=== PATIENT | male | born 1965 | race Two or more races ===

== ENCOUNTER 2024-02-03 15:45 | Emergency (ER) | payer BC, SELFPAY ==
--- NOTE | ~2024-02-03 | XR_ITS ---
EXAMINATION: XR KNEE, LEFT CLINICAL INFORMATION: Pain COMPARISON: None available. TECHNIQUE: AP, lateral, and both oblique views of the left knee. FINDINGS: There is marked patellofemoral compartment joint space narrowing and marginal osteophytes and articular cortical remodeling. More moderate medial and mild lateral compartment osteoarthritis. Slight varus angulation at the knee joint. Chronic osseous fragment at the medial margin of the medial tibial plateau. Small joint effusion. Mild soft tissue swelling. Subtle trabecular sclerosis in the distal femoral metaphysis and proximal tibial metaphysis may correspond to chronic intramedullary infarcts. XR/XR knee LT 3V IMPRESSION: 1. Tricompartmental osteoarthritis in the left knee, most severe in the patellofemoral compartment. 2. Small joint effusion.
[2024-02-03 15:48] VITALS: BP 144/100; PULSE 65; RESP 18; TEMP 37.1; O2SAT 98; BMI 23.2
--- NOTE | 2024-02-03 15:48 | ED_ITS ---
HPI - Extremity Injury (Lower) General Chief Complaint: Extremity Injury, Lower Stated Complaint: L knee pain Time Seen by Provider: 02/03/24 17:30 Source: patient and RN notes reviewed Mode of arrival: ambulatory Limitations: no limitations History of Present Illness ED Provider: Kristen Araujo PA-C HPI Narrative: This is a 58-year-old male, with no known medical problems, who presents [facility] with complaints of left knee pain x2 days. Patient states that 3 days ago he was getting out of his bed, and the 1st step he took he felt his left knee give out. He states that he has had pain and swelling to his left knee. He has been using a knee brace for his symptoms which has provided him with little relief. He denies any history of problems with his knee in the past. He denies any fevers or chills. He states he has a history of right knee problems, states that he had arthroscopic surgery while he was incarcerated in 2017. Pain worsens with weight-bearing and with flexion and extension of the knee. No other complaints or concerns at this time. MD complaint: knee injury Onset (ago): day(s) Place: home Severity: moderate Relieving factors: nothing Exacerbating factors: weight bearing Context: walking Associated symptoms: able to partially bear weight Other symptoms: none Related Data Previous Rx's ?Medication ?Instructions ?Recorded acetaminophen 650 mg 650 mg PO Q8H PRN pain #30 tabs 02/03/24 tablet,extended release (Tylenol Arthritis Pain) ibuprofen 600 mg tablet 600 mg PO Q6H PRN pain #30 tabs 02/03/24 Allergies Allergy/AdvReac Type Severity Reaction Status Date / Time No Known Allergies Allergy Verified 02/03/24 15:50 Review of Systems Review of Systems: Yes all other systems are reviewed and are negative Constitutional: Constitutional: Reports as per [facility] Past Medical History Attestation statement: The following information was validated with the patient. Social History Social History Advance Directives: No Advance Directives Information Provided: No Do you have a plan to hurt others: No Plan Physical Exam Vital Signs: Vital Signs: Last Vital Signs Temp 98.7 F 02/03/24 15:48 Pulse 65 02/03/24 15:48 Resp 18 02/03/24 15:48 BP 144/100 H 02/03/24 15:48 Pulse Ox 98 02/03/24 15:48 O2 Del Method Room Air 02/03/24 15:48 BMI result Body Mass Index 23.2 Const: General: cooperative, comfortable and no acute distress Orientation/consciousness: patient oriented x3 Limitations: no limitations HEENT: Head: Yes normal to inspection, Yes normocephalic and Yes atraumatic Ears: hearing grossly normal bilaterally General nose exam: Normal external nose present Face and sinus: Yes normal facial exam Mouth: Normal oral and palatal mucosa present, oropharynx normal and moist mucous membranes Throat: Yes posterior oropharynx normal Eyes: General: appearance normal, both eyes and all related structures Eyelids: Yes eyelids normal Conjunctivae: conjunctivae normal Sclerae: sclerae normal Pupils: Equal, round and reactive pupils present EOM: EOMs intact bilaterally Neck: Neck: Yes normal visual inspection, Yes full ROM and Yes no lymphadenopathy Lymphatic: no lymphadenopathy noted Chest: Chest palpation & inspection: normal inspection of the chest Resp: Effort & Inspection: normal respiratory effort and able to speak in co mplete sentences Auscultation: clear to auscultation bilaterally, no crackles, no rales, no rhonchi and no wheezes Cardio: Rate: regular rate Rhythm: regular rhythm Heart sounds: S1 normal heart sound present and S2 normal heart sound present GI: Inspection: Yes normal to inspection Skin: General skin exam: no rashes or lesions noted Trauma: no lacerations or abrasions Wounds: no wounds Neuro: General: patient oriented x3 and moves all extremities Cranial nerves: Yes Equal, round and reactive pupils present Extrem: Other: Left knee with no obvious bony deformity or swelling. He does have tenderness palpation along the medial and lateral joint line. Able to flex and extend however pain elicited with extension. No calf tenderness. No overlying skin changes, warmth or erythema. Negative anterior-posterior drawer. He has pain with varus and valgus strain. General: Yes normal to inspection Right upper extremity: normal to inspection Left upper extremity: normal to inspection Right lower extremity: normal to inspection Left lower extremity: normal to inspection Course Course Course Narrative: This is a Rapid Medical Exam performed in triage by Anay Hernandez PA-C. Full HPI, ROS and PE to be performed by primary ED provider. 58 year-old M w/ PMHx presenting to the ED c/o L knee pain x3 days s/p knee giving out on Friday morning after waking. denies direct injury/fall PE: +limping gait, left knee with swelling and +ttp. no erythema or warmth. NV intact Plan: XR Medical Decision Making Medical Decision Making MDM Narrative: This is a 58-year-old male who presents emergency department with complaints of left knee pain x2 days. He states that his left knee gave out on him after getting out of bed. He states that he is able to partially bear weight on his knee. On arrival, vital signs within normal limits. He has tenderness palpation along the medial and lateral joint line. Negative anterior-posterior drawer test, pain with varus and valgus strain. Differential diagnoses include internal ligamentous derangement of the left knee, sprain, strain, contusion, fracture. He has no calf tenderness to suggest DVT. He has no overlying skin changes, and he has full range of motion of the knee, therefore septic arthritis is less likely. 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 Advised to call orthopedic team tomorrow for follow-up. He was given crutches and an Jovi wrap. Also discharged on ibuprofen and Tylenol. Given return precautions. They understand and agree with plan. Patient stable for discharge. Differential Diagnosis Differential Diagnoses: The differential diagnosis associated with the presentation includes See above Radiology Impression Discussion of test interpretation with radiology: I have reviewed the radiologist's reading. Radiologist Impression: XR/XR knee LT 3V IMPRESSION: 1. Tricompartmental osteoarthritis in the left knee, most severe in the patellofemoral compartment. 2. Small joint effusion. Dictated By: Tahir King MD Discharge Plan Discharge Clinical Impression: Left knee sprain Qualifiers: Encounter type: initial encounter Involved ligament of knee: unspecified ligament Qualified Code(s): S83.92XA - Sprain of unspecified site of left knee, initial encounter Patient Disposition: Home, Self-Care Instructions: Knee Sprain (ED), How to Use an Elastic Bandage (ED) Additional Instructions: You were seen in the emergency department due to left knee pain. Your x-ray shows arthritis as well as swelling, there are no broken bones. We are unable to rule out a ligamentous injury therefore it is very important for you to follow-up with the orthopedic team. Call tomorrow to make an appointment. Please use Jovi wrap, rest, ice, elevate your left knee for comfort. Alternate between ibuprofen and Tylenol as needed for pain. If any new or worsening symptoms occur including but not limited to chest pain, shortness of breath, redness to the knee, increased swelling, please return for re-evaluation. Prescriptions: New ibuprofen 600 mg tablet 600 mg PO Q6H PRN (Reason: pain) Qty: 30 0RF acetaminophen [Tylenol Arthritis Pain] 650 mg tablet extended release 650 mg PO Q8H PRN (Reason: pain) Qty: 30 0RF Referrals: [facility] [Provider Group] Stand Alone Forms: Work/School Release Print Language: Slovenian
[2024-02-03 18:33] VITALS: BP 150/85; PULSE 47; RESP 16; TEMP 36.2; O2SAT 100
[2024-02-03 18:36] VITALS: PULSE 56
[2024-02-03 18:43] VITALS: BP 150/85; PULSE 56; RESP 16; TEMP 36.2; O2SAT 100
== END 2024-02-03 18:46 | disposition home or self-care (01) ==
PROVIDERS: Emergency Provider Emergency Medicine
DX: S83.92XA Sprain of unspecified site of left knee, initial encounter (principal); X50.1XXA Overexertion from prolonged static or awkward postures, initial encounter; M25.462 Effusion, left knee; M17.12 Unilateral primary osteoarthritis, left knee; Y93.89 Activity, other specified; Y92.003 Bedroom of unspecified non-institutional (private) residence as the place of occurrence of the external cause; Y99.9 Unspecified external cause status
CPT/HCPCS: 73562; 99283

== ENCOUNTER 2024-02-19 12:35 | Outpatient (AMB) | payer BC, SELFPAY ==
--- NOTE | 2024-02-19 12:47 | MHC.OFFVIS ---
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 Patient has history of left knee arthroscopy while her was incarcerated in 2017. He was getting out of bed on 01/31/24 when he felt the knee give out on him. He was seen at [facility] . He wears a brace for his symptoms. Takes tylenol and Ibuprofen with mild relief. 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 He was incarcerated for over 2 decades. He has had injections and surgery on the right side. That was not helpful. He now has left knee pain for years. There are times that he has severe pain that prevents him from walking. FORMERLY [facility], [facility] Surgical History (Updated 02/19/24 @ 12:54 by Fatou Arechiga [facility]) History of left knee surgery (~2017) Physical Exam Vital Signs: BMI result Body Mass Index 24.0 Extrem Other: 5-120 deg motion with ttp medial compartment Varus OA mild effusion Office Procedures Joint Injection/Aspiration Joint Injection/Aspiration Details: Injected 1 mL of Decadron and 3 mL 1% lidocaine and 3 mL of 0.25% Marcaine. Site was prepped using aseptic technique. Patient tolerated the procedure well. Primary Site: left knee Approach Used: anterolateral Coding 25838 - Large joint Procedure code (CPT) selection complete Results Reviewed Results Reviewed: I personally reviewed relevant radiographs. Severe left knee OA. Assessment & Plan Assessment & Plan (1) Localized osteoarthritis of left knee: Code(s): M17.12 - Unilateral primary osteoarthritis, left knee Category: Medical Plan: Discussed options including surgery but, at this time, injected knee. F/u 3 months. Coding Level of Care Code New Pt Level 3 (56282) Diagnoses Localized osteoarthritis of left knee M17.12 CPT Codes Coding - 99278 Large joint: 76356 - Large joint ([id number])
[2024-02-19 12:54] VITALS: BMI 24.0
== END 2024-02-19 13:54 | disposition home or self-care (01) ==
PROVIDERS: Visit Provider Orthopaedic Surgery
DX: M17.12 Unilateral primary osteoarthritis, left knee (principal)
CPT/HCPCS: 20610; 99203

== ENCOUNTER → 2024-02-19 12:35 | Outpatient (BNVA) | payer BC, SELFPAY | PROVIDERS: Visit Provider Orthopaedic Surgery | DX: M17.12 Unilateral primary osteoarthritis, left knee (principal) | CPT/HCPCS: 20610; J0665; J1100 ==

== ENCOUNTER 2025-05-04 13:39 | Emergency (ER) | payer BC, SELFPAY ==
--- NOTE | ~2025-05-04 | XR_ITS ---
EXAMINATION: XR KNEE, LEFT CLINICAL INFORMATION: pain since 2014, swelling COMPARISON: February 03, 2024 TECHNIQUE: Four views of the left knee. FINDINGS: There is a joint effusion, increased from the prior. There is moderate narrowing of the medial joint space, similar to the prior. There is mild medial subluxation of distal femur. There is ossification in the soft tissues medial to the medial joint line. No other abnormalities are noted. XR/XR knee LT 4V IMPRESSION: Moderate osteoarthritis with a joint effusion. Electronically signed by: Gigi Mathew MD 05/04/2025 02:04 PM EDT
[2025-05-04 13:43] VITALS: BP 155/86; PULSE 75; RESP 15; TEMP 36.6; O2SAT 97; BMI 24.8
--- NOTE | 2025-05-04 13:49 | ED.GENADULT ---
HPI - General Adult General Chief complaint: Extremity Injury, Lower Stated complaint: left knee pain/swelling Time Seen by Provider: 05/04/25 16:51 Source: patient Mode of arrival: ambulatory Limitations: no limitations History of Present Illness ED Provider: ELLEN HALL PA-C HPI narrative: 59-year-old male with past medical history significant for osteoarthritis presents to the ED today for evaluation of left knee pain/swelling x3 days. Pain is exacerbated with movement. Denies any injury or trauma to the knee. He has been trialing [id number] Motrin without much improvement. Denies history of gout or IV drug use. Related Data Home Medications ?Medication ?Instructions ?Recorded ?Confirmed famotidine 20 mg tablet 20 mg PO BID indigestion 02/19/24 hydrochlorothiazide 12.5 mg tablet 12.5 mg PO DAILY 02/19/24 Previous Rx's ?Medication ?Instructions ?Recorded acetaminophen 650 mg 650 mg PO Q8H PRN pain #30 tabs 02/03/24 tablet,extended release (Tylenol Arthritis Pain) ibuprofen 600 mg tablet 600 mg PO Q6H PRN pain #30 tabs 02/03/24 diclofenac sodium 1 % topical gel 4 g topical QID #100 grams 05/04/25 meloxicam 7.5 mg tablet 7.5 mg PO DAILY PRN pain (scale 05/04/25 score 4-6) #30 tabs Allergies Allergy/AdvReac Type Severity Reaction Status Date / Time No Known Allergies Allergy Verified 05/04/25 13:46 Review of Systems Review of Systems: Yes all other systems are reviewed and are negative PMFSH Past Medical History Attestation statement: The following information was validated with the patient. Source: old records reviewed and nursing notes reviewed Surgical History History of left knee surgery (~2017) Social History Social History Advance Directives: No Advance Directives Information Provided: Yes Do you have a plan to hurt others: No Plan Physical Exam ED Vital Signs: Vital Signs - 24 hr 05/04/25 13:43 05/04/25 17:32 Temperature 98 F 98 F Pulse Rate 75 75 Respiratory Rate 15 15 Blood Pressure 155/86 H 155/86 H Pulse Oximetry 97 97 Oxygen Delivery Method Room Air Room Air BMI result Body Mass Index 24.8 hypertensive, vitals are otherwise wnl General: Well appearing, in no acute distress. Skin: Warm, dry, intact. No rashes or lesions. Head: Normocephalic, atraumatic. EENT: Hearing is intact b/l. Conjunctiva clear. PERRLA. EOM intact. Moist mucous membranes.? Neck: Supple without LAD Back: No midline spinous or paraspinal tenderness. No step off deformity. Ext: +mild swelling noted to left knee. No deformity, redness. Full ROM intact to left knee with pain on flexion. No palpable deformity, crepitus, warmth. NV intact. no calf tenderness. Neuro: AOx3. Normal speech. Ambulating with limping gait. Course Course Course Narrative: cbc without leukocytosis or left shift. no anemia, h&h stable. Chemistry without acute electrolyte abnormality requiring intervention. No ELADIO. Uric acid WNL. X-ray left knee showing joint effusion with moderate narrowing of the medial joint space - findings consistent with osteoarthritis. > discussed workup results with patient. Jovi wrap applied. Will treat for osteoarthritis. Toradol injection given in the ED today. Will send patient home with a prescription for meloxicam and diclofenac cream. Advised follow up with PCP. Patient has remained stable throughout ED visit today. Discussed worrisome signs and symptoms and when to return to the ED. All questions answered at this time. Patient is agreeable with disposition and stable for discharge. Medications Administered Discontinued Medications Generic Name Dose Route Start Last Admin Trade Name Freq PRN Reason Stop Dose Admin Ketorolac Tromethamine 30 mg 05/04/25 16:57 05/04/25 17:26 Ketorolac Tromethamine 30 Mg/Ml Vial IM 05/04/25 16:58 30 mg ONCE ONE Administration Procedures Orthopedic Splinting/Casting Injury #1: Side: left Lower Extremity Injury Location: knee Lower Extremity Immobilizer: Jovi wrap Medical Decision Making Medical Decision Making MDM Narrative: 59-year-old male with pmhx significant for osteoarthritis presents to the ED today for evaluation of left knee pain/swelling x3 days. Hypertensive, afebrile. He is well-appearing and in no acute distress. On exam, mild swelling noted to left knee. No deformity, redness. Full ROM intact to left knee with pain on flexion. No palpable deformity, crepitus, warmth. nv intact. no calf tenderness. Differential diagnosis includes osteoarthritis, knee effusion, septic arthritis, gout, pseudogout Unlikely fracture, septic joint, DVT, popliteal cyst, neurovascular compromise, threat to limb Plan for xrays, labs/uric acid, pain control and re-evaluation. Differential Diagnosis Differential Diagnoses: The differential diagnosis associated with the presentation includes As above Admission/Observation Not indicated Lab Data MDM Lab Attestation statement: I reviewed the patient's lab results. As above 05/04/25 13:58 05/04/25 13:58 Labs: Lab Results 05/04/25 Range/Units 13:58 WBC 7.3 (4.8-10.8) X10*3/uL RBC 4.58 L (4.60-5.80) X10*6/uL Hgb 14.3 (14.0-18.0) g/dl Hct 42.9 (42.0-52.0) % MCV 93.7 (80.0-98.0) fL MCH 31.2 (27.0-33.0) pg MCHC 33.3 (31.0-36.0) g/dl RDW 13.1 (11.0-16.0) % Plt Count 235 (160-400) X10*3/uL MPV 9.7 (9.4-12.4) fL Immature Gran % (Auto) 0.6 H (0.0-0.4) % Neut % (Auto) 64.2 (45-73) % Lymph % (Auto) 22.8 (20-40) % [place] % (Auto) 10.3 (2-11) % Eos % (Auto) 1.5 (0-4) % Baso % (Auto) 0.6 (0-2) % Lymph # (Auto) 1.7 (1.2-4.9) X10*3/uL [place] # (Auto) 0.8 (0.1-1.2) X10*3/uL Eos # (Auto) 0.1 (0.0-0.4) X10*3/uL Baso # (Auto) 0.0 (0.0-0.2) X10*3/uL Abs Immat Gran (auto) 0.04 H (0.00-0.03) X10*3/uL Absolute Neuts (auto) 4.7 (2.0-8.3) x10*3/uL Absolute Nucleated RBC 0.000 (0.0-0.012) X10*3/uL Nucleated RBC % (auto) 0.0 (0.0-0.2) /100WBC Sodium 143 (135-145) mmol/L Potassium 4.0 (3.3-5.1) mmol/L Chloride 110 H (96-108) mmol/L Carbon Dioxide 28 (22-29) mmol/L Anion Gap 9 L (12-20) BUN 15 (9-16) mg/dL Creatinine 0.74 (0.5-1.4) mg/dL Estim Creat Clear Calc 106.5 Estimated GFR > 60 Random Glucose 97 (60-115) mg/dL Uric Acid 5.1 (3.4-7.0) mg/dL Calcium 9.1 (8.4-10.2) mg/dL Independent Interpretation I performed an independent interpretation of an: Plain X-Ray Interpretation: X-ray left knee without fracture Radiology Impression Discussion of test interpretation with radiology: I have reviewed the radiologist's reading. Radiologist Impression: Procedure(s): XR knee LT 4V Accession Number(s): [id number] cc: Jennifer Olguin MD; Ellen Hall~ Reason for Exam: pain swelling EXAMINATION: XR KNEE, LEFT CLINICAL INFORMATION: pain since 2014, swelling COMPARISON: February 03, 2024 TECHNIQUE: Four views of the left knee. FINDINGS: There is a joint effusion, increased from the prior. There is moderate narrowing of the medial joint space, similar to the prior. There is mild medial subluxation of distal femur. There is ossification in the soft tissues medial to the medial joint line. No other abnormalities are noted. XR/XR knee LT 4V IMPRESSION: Moderate osteoarthritis with a joint effusion. Electronically signed by: Gigi Mathew MD 05/04/2025 02:04 PM EDT Discharge Plan Discharge Clinical Impression: Osteoarthritis of left knee Patient Disposition: Home, Self-Care Instructions: Osteoarthritis (ED) Additional Instructions: You were evaluated in the ED today for your left knee pain. Your blood work is reassuring. Your x-rays show arthritis within your left knee. Treatment for this is supportive care. Utilize rice therapy - rest, ice, compress, elevate the left knee. I am sending meloxicam to your pharmacy. Do not take this with other NSAIDs such as Motrin/ibuprofen as this can increase risk of GI bleeding. I am also sending diclofenac cream to your pharmacy. You may apply this to your left knee for pain. Please follow up with your PCP. Return with any new or worsening symptoms. In the case of an emergency call 911. Prescriptions: New meloxicam 7.5 mg tablet 7.5 mg PO DAILY PRN (Reason: pain (scale score 4-6)) Qty: 30 0RF diclofenac sodium 1 % gel 4 g topical QID Qty: 100 0RF Rx Instructions: apply to single knee, ankle, foot; for foot includes sole/toes/top of foot No Action ibuprofen 600 mg tablet 600 mg PO Q6H PRN (Reason: pain) Qty: 30 0RF acetaminophen [Tylenol Arthritis Pain] 650 mg tablet extended release 650 mg PO Q8H PRN (Reason: pain) Qty: 30 0RF hydrochlorothiazide 12.5 mg tablet 12.5 mg PO DAILY famotidine 20 mg tablet 20 mg PO BID Referrals: Jennifer Olguin MD [Primary Care Provider, Internal Medicine] Stand Alone Forms: Work/School Release Interventions: ED Discharge Assessment Last Done: 05/04/25 17:32 Discharge Date/Time: 05/04/25 17:33 Print Language: Irish
[2025-05-04 14:04] LABS: Hematocrit 42.9 % (42.0-52.0); Hemoglobin 14.3 g/dl (14.0-18.0); Imm Gran Abs Auto 0.04 X10*3/uL (0.00-0.03); Imm Gran Pct Auto 0.6 % (0.0-0.4); Lymphocytes Absolute Auto 1.7 X10*3/uL (1.2-4.9); MANUAL DIFF FLAG NO; Mean Corpuscular HGB Conc 33.3 g/dl (31.0-36.0); Mean Corpuscular Hemoglobin 31.2 pg (27.0-33.0); Mean Corpuscular Volume 93.7 fL (80.0-98.0); NRBC Abs Auto 0.000 X10*3/uL (0.0-0.012); NRBC Pct Auto 0.0 /100WBC (0.0-0.2); Platelet Count 235 X10*3/uL (160-400); Red Blood Count 4.58 X10*6/uL (4.60-5.80); White Blood Count 7.3 X10*3/uL (4.8-10.8)
[2025-05-04 14:20] LABS: Anion Gap 9 (12-20); Blood Urea Nitrogen 15 mg/dL (9-16); Calcium 9.1 mg/dL (8.4-10.2); Carbon Dioxide 28 mmol/L (22-29); Chloride 110 mmol/L (96-108); Creatinine Clr Calc Pharmacy 106.5; Estimated Glomerular Filt Rate > 60; Potassium 4.0 mmol/L (3.3-5.1); Sodium 143 mmol/L (135-145)
[2025-05-04 17:10] LABS: Uric Acid 5.1 mg/dL (3.4-7.0)
[2025-05-04 17:32] VITALS: BP 155/86; PULSE 75; RESP 15; TEMP 36.6; O2SAT 97
--- OUTSIDE RECORDS SUMMARY | 2025-05-04 22:12 | XMS_ITS | Clinical Summary ---
Author Organization [facility] Address [address] [place] [address] Phone Care Team Providers Care Yard Specialist Name Role Phone Jennifer Olguin MD Primary Care Provider + Allergies No known active allergies Medications No known medications Encounters Date Type Department Care Team Description 02/09/2025 4:13 PM EDT - 02/09/2025 7:06 PM EDT Emergency [facility] Emergency [address] [place] [address] Lilly Martinez MD Injury of right lower extremity, initial encounter (Primary Dx) Discharge Disposition: Home or Self Care from Last 3 Months Medical History Medical History Date Comments HTN (hypertension) Social History Tobacco Use Types Packs/Day Years Used Date Smoking Tobacco: Never Assessed Sex and Gender Information Value Date Recorded Sex Assigned at Not on file Legal Sex Male 1:37 PM EDT Gender Identity Not on file Sexual Orientation Not on file Obstetrics History Last Filed Vital Signs Vital Sign Reading Time Taken Comments Blood Pressure 136/97 02/09/2025 3:42 PM EDT Pulse 88 02/09/2025 3:42 PM EDT Temperature 37.1 C (98.8 F) 02/09/2025 3:42 PM EDT Respiratory Rate 16 02/09/2025 3:42 PM EDT Oxygen Saturation 96% 02/09/2025 3:42 PM EDT Inhaled Oxygen Concentration - - Weight 74.8 kg (165 lb) 02/09/2025 3:39 PM EDT Height 177.8 cm (5' 10 ) 02/09/2025 3:39 PM EDT Body Mass Index 23.68 02/09/2025 3:39 PM EDT Plan of Treatment Health Maintenance Due Date Last Done Comments Colorectal Cancer Screening: Colonoscopy 1967 DTaP,Tdap,and Td Vaccines (1 - Tdap) 11/02/1986 Hepatitis B Vaccines (1 of 3 - 19+ 3-dose series) 11/02/1986 Pneumococcal Vaccine: 50+ Ye ars (1 of 1 - PCV) 11/02/2017 Zoster Vaccines (1 of 2) 11/02/2017 Cholesterol Screening (Lipid Panel) 02/04/2024 HIV Screening 02/04/2024 Hepatitis C Screening 02/04/2024 Social Influencers of Health Screening 02/04/2024 Depression Screening 07/14/2024 Hypertension/CHF/CAD Annual BMP Blood Test 02/10/2025 COVID-19 Vaccine (1 - 2023-2 5 season) 2025 Influenza Vaccine (#1) 2025 03/09/2024 RSV Immunization Adult Patie nts (1 - 1-dose 75+ series) 11/02/2042 HIB Vaccines Aged Out No longer eligi ble based on patient's age to complete this topic HPV Vaccines Aged Out No longer eligi ble based on patient's age to complete this topic Hepatitis A Vaccines Aged Out No long er eligible based on patient's age to complete this topic IPV Vaccines Aged Out No longer eligi ble based on patient's age to complete this topic MMR Vaccines Aged Out No longer eligi ble based on patient's age to complete this topic Meningococcal ACWY Vaccine Aged Out N o longer eligible based on patient's age to complete this topic Meningococcal B Vaccine Aged Out No l onger eligible based on patient's age to complete this topic RSV Immunization Patients Un edward 20 months Aged Out No longer eligible b ased on patient's age to complete this topic Varicella Vaccines Aged Out No longer eligible based on patient's age to complete this topic Procedures Procedure Name Priority Date/Time Associated Diagnosis Comments XR ANKLE 3+ VIEWS RIGHT STAT 02/09/2025 4:50 PM EDT XR TIBIA FIBULA 2 VIEWS RIGHT STAT 02/09/2025 4:50 PM EDT from Last 3 Months Results * XR Ankle 3+ Views Right (02/09/2025 4:50 PM EDT) Anatomical Region Laterality Modality Lower Extremities, Ankle Right Radiogr aphic Imaging 02/09/2025 5:04 PM EDT Impressions 02/09/2025 5:05 PM EDT FINDINGS/IMPRESSION: No acute fracture. Normal alignment. Lytic/sclerotic lesion in the distal tibia nonspecific but could represent a nonossifying fibroma. Osteopenia with degenerative changes of the ankle. Large plantar calcaneal spur. -------- FINAL REPORT -------- Dictated By: Russell Schumacher Dictated Date: 02/09/2025 17:04 ET Assigned Physician: Russell Schumacher Reviewed and Electronically Signed By: Russell Schumacher Signed Date: 02/09/2025 17:05 ET Workstation ID: [id number] Transcribed By: Self Edit Transcribed Date: 02/09/2025 17:04 ET Narrative 02/09/2025 5:05 PM EDT XR ANKLE 3+ VIEWS RIGHT INDICATION: trauma TECHNIQUE: XR ANKLE 3+ VIEWS RIGHT COMPARISON: No priors available. Procedure Note Russell Schumacher MD - 02/09/2025 XR ANKLE 3+ VIEWS RIGHT INDICATION: trauma TECHNIQUE: XR ANKLE 3+ VIEWS RIGHT COMPARISON: No priors available. IMPRESSION: FINDINGS/IMPRESSION: No acute fracture. Normal alignment. Lytic/sclerotic lesion in the distal tibia nonspecific but could representa nonossifying fibroma. Osteopenia with degenerative changes of theankle. Large plantar calcaneal spur. -------- FINAL REPORT -------- Dictated By: Russell Schumacher Dictated Date: 02/09/2025 17:04 ET Assigned Physician: Russell Schumacher Reviewed and Electronically Signed By: Russell Schumacher Signed Date: 02/09/2025 17:05 ET Workstation ID: [id number] Transcribed By: Self Edit Transcribed Date: 02/09/2025 17:04 ET Lilly Martinez MD IMG XR PROCEDURES Final Result * XR Tibia Fibula 2 Views Right (02/09/2025 4:50 PM EDT) Anatomical Region Laterality Modality Lower Extremities, Lower Leg Right Rad iographic Imaging 02/09/2025 4:58 PM EDT Impressions 02/09/2025 4:59 PM EDT FINDINGS/IMPRESSION: 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 No acute fracture. Normal alignment. -------- FINAL REPORT -------- Dictated By: Russell Schumacher Dictated Date: 02/09/2025 16:58 ET Assigned Physician: Russell Schumacher Reviewed and Electronically Signed By: Russell Schumacher Signed Date: 02/09/2025 16:59 ET Workstation ID: [id number] Transcribed By: Self Edit Transcribed Date: 02/09/2025 16:58 ET Narrative 02/09/2025 4:59 PM EDT XR TIBIA FIBULA 2 VIEWS RIGHT INDICATION: trauma, tender over love TECHNIQUE: XR TIBIA FIBULA 2 VIEWS RIGHT COMPARISON: No priors available. Procedure Note Russell Schumacher MD - 02/09/2025 XR TIBIA FIBULA 2 VIEWS RIGHT INDICATION: trauma, tender over love TECHNIQUE: XR TIBIA FIBULA 2 VIEWS RIGHT COMPARISON: No priors available. IMPRESSION: FINDINGS/IMPRESSION: Lucent/sclerotic lesions in the proximal tibia andfibula representing nonossifying fibromas. No acute fracture. Normalalignment. -------- FINAL REPORT -------- Dictated By: Russell Schumacher Dictated Date: 02/09/2025 16:58 ET Assigned Physician: Russell Schumacher Reviewed and Electronically Signed By: Russell Schumacher Signed Date: 02/09/2025 16:59 ET Workstation ID: [id number] Transcribed By: Self Edit Transcribed Date: 02/09/2025 16:58 ET Lilly Martinez MD IMG XR PROCEDURES Final Result from Last 3 Months Insurance [employer] ([facility]) Care Teams Yard Specialist Relationship Specialty Start Date End Date Jennifer Olguin MD [address] [place] [id number] PCP - General Internal Medicine 02/09/25
--- OUTSIDE RECORDS SUMMARY | 2025-05-04 22:13 | XMS_ITS | Patient Health Record ---
Author Organization [facility] Address [address] [place] [address] Care Team Providers Care Director Of Grants Name Role Phone [facility] Primary Care Provider [facility] Unavailable [phone] Reason For Referral No Information Plan Of Treatment No Information Insurance Providers Payer Name Payer Address Payer Phone Subscriber Number Group Number Insured Name Patient Relationship to Insured Coverage Start Date Coverage End Date [facility] Be Healthy [address] [place] [address] [id number] Clay Winn Self - patient is the insured 3 Insurance Pending [address] [facility] [place] [id number] Clay Winn Self - patient is the insured 3
== END 2025-05-04 17:33 | disposition home or self-care (01) ==
PROVIDERS: Physician Assistant Medical; Emergency Provider Emergency Medicine; PCP Internal Medicine
DX: M17.11 Unilateral primary osteoarthritis, right knee (principal); R60.0 Localized edema
CPT/HCPCS: 36415; 73564; 80048; 84550; 85025; 96372; 99283; 99284; J1885

== ENCOUNTER → 2025-05-04 13:43 | Outpatient (BNV) | payer BC, SELFPAY | PROVIDERS: PCP Internal Medicine; Visit Provider Radiology Diagnostic Radiology | DX: M17.12 Unilateral primary osteoarthritis, left knee (principal); M25.462 Effusion, left knee | CPT/HCPCS: 73564 ==

== ENCOUNTER 2025-05-09 14:17 | Outpatient (AMB) | payer BC, SELFPAY ==
--- NOTE | 2025-05-09 14:22 | MHC.OFFVIS ---
Vital Signs 05/09/25 14:25 Height 5 ft 8 in Weight 162 lb BMI 24.6 Intake Visit Reasons: OV- Left knee pain last inj 02/19/24 Intake Note: Clay is a 59 year old male who presents today for a follow up of his Left Knee OA, at his last visit on 02/19/24 the left knee was injected. Patient reports that the injection was mildly helpful. He is interested in repeating injection today, but would like to talk about alternative treatment options in the future Allergies No Known Allergies Allergy (Verified 05/04/25 13:46) HPI HPI OV- Left knee pain last inj 02/19/24: Details: Clay is a 59 year old male who presents today for a follow up of his Left Knee OA, at his last visit on 02/19/24 the left knee was injected. Patient reports that the injection was helpful for a few months. He is interested in repeating injection today, but would like to talk about alternative treatment options in the future. He has difficulty with all daily activities and does have significant pain with ambulation. He is hesitant about surgery however. [facility] Surgical History History of left knee surgery (~2017) Physical Exam Exam Exam: Moderate effusion. Sharp tenderness to palpation medial joint line. Crepitus with range of motion Vital Signs: BMI result Body Mass Index 24.6 Office Procedures Joint Inj/Aspir; Non-Pain Clin Joint Injection/Drain Details: Injected 1 mL of Decadron and 3 mL 1% lidocaine and 3 mL of 0.25% Marcaine. Site was prepped using aseptic technique. Patient tolerated the procedure well. Shoulders, Hips, Knees, Knee Large Joint Injection : Left Knee Coding Procedure code (CPT) selection complete Results Reviewed Results Reviewed: I personally reviewed relevant radiographs. Severe left knee OA Assessment & Plan Assessment & Plan (1) Localized osteoarthritis of left knee: Code(s): M17.12 - Unilateral primary osteoarthritis, left knee Category: Medical Plan: This is a 59-year-old gentleman with severe osteoarthritis of the left knee. He is debilitated and daily activities but the last injection was helpful and he is hesitant about surgery. I think this is reasonable given his young age. I injected his left knee today. He can follow up to see me in 3 months for repeat injection or further discussion about alternative treatment options. Coding Level of Care Code Est Pt Level 3 (05250) Diagnoses Localized osteoarthritis of left knee M17.12 CPT Codes Shoulders, Hips, Knees, - Knee Large Joint Injection : Left Knee ([id number])
[2025-05-09 14:25] VITALS: BMI 24.6
--- OUTSIDE RECORDS SUMMARY | 2025-05-09 17:54 | XMS_ITS | Clinical Summary ---
Author Organization [facility] Address [address] [place] [address] Phone Care Team Providers Care Crop And Soil Technician Name Role Phone Jennifer Olguin MD Primary Care Provider + Allergies No known active allergies Medications No known medications Encounters Date Type Department Care Team Description 02/09/2025 4:13 PM EDT - 02/09/2025 7:06 PM EDT Emergency [facility] Emergency [address] [place] [address] Lilly Martinez MD Injury of [...] Signed Date: 02/09/2025 17:05 ET Workstation ID: [id number] Transcribed By: Self Edit Transcribed Date: 02/09/2025 [...] Signed Date: 02/09/2025 17:05 ET Workstation ID: [id number] Transcribed By: Self Edit Transcribed Date: 02/09/2025 [...] Signed Date: 02/09/2025 16:59 ET Workstation ID: [id number] Transcribed By: Self Edit Transcribed Date: 02/09/2025 [...] Signed Date: 02/09/2025 16:59 ET Workstation ID: [id number] Transcribed By: Self Edit Transcribed Date: 02/09/2025 16:58 ET Lilly Martinez MD IMG XR PROCEDURES Final Result from Last 3 Months Insurance [employer] ([facility]) Care Teams Crop And Soil Technician Relationship Specialty Start Date End Date Jennifer Olguin MD [address] [place] [phone] PCP - General Internal Medicine 02/09/25
--- OUTSIDE RECORDS SUMMARY | 2025-05-09 17:54 | XMS_ITS | Patient Health Record ---
Author Organization [facility] Address [address] [place] [address] Care Team Providers Care Cold Rolling Supervisor Name Role Phone [facility] Primary Care Provider [facility] Unavailable [phone] Reason For Referral No Information Plan Of Treatment No Information Insurance Providers Payer Name Payer Address Payer Phone Subscriber Number Group Number Insured Name Patient Relationship to Insured Coverage Start Date Coverage End Date [facility] Be Healthy [address] [place] [phone] [id number] Clay Winn Self - patient is the insured 3 Insurance Pending [address] [place] [id number] Clay Winn Self - patient is the insured 3
== END 2025-05-09 15:47 | disposition home or self-care (01) ==
LOC: HO.HOS 14:18
PROVIDERS: Visit Provider Orthopaedic Surgery
DX: M17.12 Unilateral primary osteoarthritis, left knee (principal)
CPT/HCPCS: 20610; 99213

== ENCOUNTER → 2025-05-09 14:17 | Outpatient (BNVA) | payer BC, SELFPAY | PROVIDERS: Visit Provider Orthopaedic Surgery | DX: M17.12 Unilateral primary osteoarthritis, left knee (principal); M25.562 Pain in left knee | CPT/HCPCS: 20610; J0665; J1100; J2003 ==